=== PATIENT | male | born 1995 | race Caucasian/White ===

== ENCOUNTER 2020-12-19 11:20 | Emergency (ER) | payer OTHER ==
[2020-12-19] MEDS ORDERED: metroNIDAZOLE 250 MG TABLET PO STA (12:16)
[2020-12-19] MEDS ORDERED: CLINDAMYCIN 150 MG CAPSULE PO STA (12:16)
--- NOTE | 2020-12-19 12:19 | ED Physician Documentation ---
History of Present Illness - Stated complaint Stated Complaint: HEAD INJURY - Chief complaint Chief Complaint: Heent - Additonal information Additional information: 25-year-old male presents emergency department for evaluation of an abrasion on his left upper eyelid as well as exposure to raw sewage. He was working on a [employer] sewer line and was trying to break free and air ball when the line ruptured causing a raw sewage stream under pressure to hit his face. He reports that fourchette sewer entered his mouth eyes and nose. He had a difficult time opening his eyes for a little bit. After that he did thoroughly irrigate his face and head with water. Denies any history of hepatitis or HIV. Reports his tetanus as up-to-date. Review of Systems Constitutional: denies: Fever, Chills Eyes: reports: Reviewed and negative Ears: reports: Reviewed and negative Throat: reports: Reviewed and negative Cardiac: reports: Reviewed and negative Respiratory: reports: Reviewed and negative GI: reports: Abdominal Pain : reports: Reviewed and negative Skin: reports: Abrasion (s) (left eyelid) Musculoskeletal: reports: Reviewed and negative PD PAST MEDICAL HISTORY - Present Medications Home Medications: Ambulatory Orders Medication Instructions Recorded Confirmed Erythromycin Ophth Oint [Ilotycin 1 applic OPTH BID #1 gm 12/19/20 Ophth Oint] clindamycin HCL [Clindamycin HCl] 300 mg PO Q6H 7 Days #28 cap 12/19/20 metroNIDAZOLE [Flagyl] 500 mg PO QID #28 tablet 12/19/20 - Allergies Allergies/Adverse Reactions: Allergies Allergy/AdvReac Type Severity Reaction Status Date / Time No Known Drug Allergies Allergy Verified 12/19/20 11:32 PD ED PE NORMAL - General General: Alert and oriented X 3, No acute distress - HEENT HEENT: PERRL, Ears normal, Moist mucous membranes, Pharynx benign, Other (Negative fluorescein stain of both eyes. Both eyes copiously irrigated with 500 mils of normal saline.). No: Atraumatic (Superficial abrasion of the left upper eyelid) - Neck Neck: Supple, no meningeal sign - Cardiac Cardiac: RRR, No murmur - Respiratory Respiratory: Clear bilaterally - Abdomen Abdomen: Normal bowel sounds, Soft, Non tender, Non distended Results - Vitals Vitals: Vital Signs - 24 hr 12/19/20 11:27 Temperature 36.6 C Heart Rate 54 L Respiratory 16 Rate Blood Pressure 155/87 H O2 Saturation 99 Oxygen O2 Source Room air PD MEDICAL DECISION MAKING - ED course Complexity details: reviewed results, re-evaluated patient, d/w patient ED course: 25-year-old male presents the emergency department for evaluation of abrasion to his left upper eyelid as well as exposure to raw sewage when working on a [employer] sewer line this afternoon. He is concerned because raw fourchette sewer did enter his nose mouth and oropharynx. His tetanus is up-to-date. Fluorescein stain of both eyes reveals no abrasions or cuts. Both eyes were copiously irrigated with 0.9% saline. We will obtain baseline hepatitis ABC and HIV series to establish negative. He is advised to follow-up with [facility] industries in 8 to 12 weeks to have his hepatitis redrawn. In reading up-to-date it is appropriate to consider prophylactic antibiotics with exposure to a large amount of raw fourchette sewer. Patient will be started prophylactically on Cipro and Flagyl. Also advised acidophilus raw yogurt. Emergent return precautions discussed for fevers, uncontrolled abdominal pain black or bloody diarrhea suddenly severe headache or any worsening symptoms. Departure - Departure Disposition: 01 Home, Self Care Clinical Impression: Screening for chemical poisoning and contamination Abrasion of eyelid, left Qualifiers: Encounter type: initial encounter Qualified Code(s): S00.212A - Abrasion of left eyelid and periocular area, initial encounter Condition: Stable Record reviewed to determine appropriate education?: Yes Prescriptions: clindamycin HCL [Clindamycin HCl] 300 mg PO Q6H 7 Days #28 cap metroNIDAZOLE [Flagyl] 500 mg PO QID #28 tablet Erythromycin Ophth Oint [Ilotycin Ophth Oint] 1 applic OPTH BID #1 gm Comments: Cornelius mendez are seen in the ER today after exposure to raw sewage while at your worksite. We did do a fluorescein stain of both your eyes and there is no corneal cuts or abrasions. We are obtaining baseline labs to test you for hepatitis. You will be notified only if these test results are positive. It is important that you follow-up in 8 to 12 weeks with your primary care provider to have your labs redrawn to ensure that you have not converted to hepatitis positive. Please fill the prescription for the antibiotics and take as directed. I do recommend that you eat yogurt or by lactobacillus [id number] as you may develop diarrhea. If in the ensuing few weeks you develop any fevers or suddenly severe belly pain yellowing of your skin have black or bloody stools please return immediately to the ER for a second look.
[2020-12-19 12:21] VITALS: BP 129/88
[2020-12-20 12:17] LABS: HEPATITIS C ANTIBODY NON-REACTIVE (NON-REACTIVE)
[2020-12-20 15:11] LABS: HIV AG/AB 4TH GEN NON-REACTIVE (NON-REACTIVE)
== END 2020-12-19 12:53 | disposition home or self-care (01) ==
LOC: ED 11:20
DX: S00.212A Abrasion of left eyelid and periocular area, initial encounter (principal); Z77.111 Contact with and (suspected) exposure to water pollution; X58.XXXA Exposure to other specified factors, initial encounter; Y93.89 Activity, other specified; Y99.0 Civilian activity done for income or pay
CPT/HCPCS: 1040M; 86317; 86803; 87389; 99283; A9270